=== PATIENT | male | born 1950 | race Caucasian/White ===

== ENCOUNTER → 2017-03-20 | Outpatient (CLI) | payer BC ==
[2016-06-13 13:15] VITALS: BP 133/70
[~2017-03-20] MED LIST: ACET500T33 PO; ALLO300T PO; AMIO200T2 PO; ASCO100020 PO; ASPI-630 PO; ASPI325T11 PO; CARV3.12 PO; CYCL10TA2 PO; EZET10TA18 PO; FENO145T PO; FURO-69 PO; IBUP-1060 PO; INSU100V8 SQ; LINE600T PO; LIRA0.6P2 SQ; LORA1TAB47 PO; METF500T4 PO; OXYC-323 PO; POTASSIUM CHLO10 MEQ PO; RAMI5CAP33 PO; SERT100T8 PO; SIMV40TA3 PO; VALS160T3 PO
[2017-03-20 11:21] LABS: CALCIUM 9.2 mg/dL (8.5-10.1); CHOLESTEROL/HDL RATIO 4.7; DIRECT BILIRUBIN 0.1 mg/dL (0.0-0.2); GFR 33.7; MAGNESIUM 1.9 mg/dL (1.8-2.4); POTASSIUM 5.2 mmol/L (3.5-5.1); TOTAL BILIRUBIN 0.4 mg/dL (0.2-1.0); TOTAL PROTEIN 7.6 g/dL (6.4-8.2)
--- NOTE | 2017-03-20 12:22 | CARD ---
APPROVED REPORT EXAM: Two-dimensional and M-mode echocardiogram with Doppler and color Doppler. Other Information Quality : GoodTechnically Limited Technically limited study due to body habitus INDICATION Hyperlipidemia, Chronic Systolic Heart Failure Surgery/Intervention ICD/Pacemaker: RISK FACTORS Hypertension Obesity 2D DIMENSIONS RVDd3.3 (2.9-3.5cm)Left Atrium(2D)4.4 (1.6-4.0cm) IVSd1.0 (0.7-1.1cm)Aortic Root(2D)3.1 (2.0-3.7cm) LVDd6.1 (3.9-5.9cm)LVOT Diameter2.4 (1.8-2.4cm) PWd1.0 (0.7-1.1cm)LVDs5.6 (2.5-4.0cm) FS (%) 8.9 %SV36.4 ml LVEF(%)19.2 (>50%) Aortic Valve AoV Peak Sid.117.9cm/sAoV VTI22.7cm AO Peak GR.5.6mmHgLVOT Peak Sid.110.7cm/s LVOT VTI 22.28cmAO Mean GR.3mmHg LIONEL (VMAX)4.18bf6BPX (VTI)4.34cm2 Mitral Valve MV E Rlibraxp83.5cm/sMV DECEL NCSP334hi MV A Wzytbdxi47.1cm/sMV RVL39yg E/A Ratio1.7MVA (PHT)3.76cm2 TDI E/Medial E'22.5 Tricuspid Valve TR P. Tcjkmvcw348gx/sRAP WEHHBNJT2ntRk TR Peak Gr.70naZkNIXX47vyQv LEFT VENTRICLE The Left Ventricle is mildly dilated. There is normal left ventricular wall thickness. Left ventricle systolic function is severely impaired. The Ejection Fraction is 20%. There is severe global hypokin esis of the left ventricle. Transmitral Doppler flow pattern is Grade II-pseudonormal filling dynamic s. RIGHT VENTRICLE The right ventricle is normal size. The right ventricular systolic function is normal. There is a pac emaker lead in the right ventricle. ATRIA The left atrium is mildly dilated. The right atrium size is normal. A pacemaker/ICD lead is seen in t he right atrium consistent with history. The interatrial septum is intact with no evidence for an atr ial septal defect or patent foramen ovale as noted on 2-D or Doppler imaging. AORTIC VALVE The aortic valve is normal in structure and function. Doppler and Color Flow revealed trace aortic re gurgitation. There is no significant aortic valvular stenosis. There is no aortic valvular vegetation . MITRAL VALVE The mitral valve is calcified but opens well. There is no evidence of mitral valve prolapse. There is no mitral valve stenosis. Doppler and Color-flow revealed mild mitral regurgitation. TRICUSPID VALVE The tricuspid valve is normal in structure and function. Doppler and Color Flow revealed mild to mode rate tricuspid regurgitation. There is moderate pulmonary hypertension. The PA pressure was estimated at 48 mmHg. There is no tricuspid valve stenosis. PULMONIC VALVE The pulmonary valve is normal in structure and function. Doppler and Color Flow revealed mild pulmoni c valvular regurgitation. There is no pulmonic valvular stenosis. GREAT VESSELS The aortic root is normal in size. The ascending aorta is not well seen. The IVC was not visualized. PERICARDIAL EFFUSION There is no evidence of significant pericardial effusion. Critical Notification Critical Value: No <Conclusion> Technically difficult study. Left ventricle systolic function is severely impaired. The Ejection Fraction is 20%. The left atrium is mildly dilated. A pacemaker/ICD lead is seen in the right atrium and right ventricle consistent with history. Mild mitral regurgitation. Mild to moderate tricuspid regurgitation. There is moderate pulmonary hypertension. The PA pressure was estimated at 48 mmHg. There is no evidence of significant pericardial effusion.
== END | disposition home or self-care (01) ==
LOC: ECHO 10:09
PROVIDERS: ATTEND Internal Medicine Cardiovascular Disease
DX: I11.0 Hypertensive heart disease with heart failure (principal); I08.1 Rheumatic disorders of both mitral and tricuspid valves; I50.22 Chronic systolic (congestive) heart failure; E78.5 Hyperlipidemia, unspecified; I27.2 Other secondary pulmonary hypertension; Z95.0 Presence of cardiac pacemaker
CPT/HCPCS: 36415; 80048; 80061; 80076; 83735; 93306

== ENCOUNTER → 2017-05-21 | Outpatient (CLI) | payer BC ==
[2016-06-13 13:15] VITALS: BP 133/70
--- NOTE | 2017-05-21 14:03 | RAD ---
EXAM: Renal scintigraphy. HISTORY: Diabetes, hypertension, chronic renal disease. COMPARISON: 07/09/2016. FINDINGS: 5.2 mCi technetium-99m MAG3 were administered intravenously. Scintigraphic images of the kidneys were obtained in angiographic, uptake and excretory phases. 20 mg Lasix were administered intravenously and additional excretory images were obtained. Split function and excretory curves were calculated. Angiographic images demonstrate prompt, symmetric renal perfusion. Uptake images demonstrate symmetric renal function. Contrast is seen within both ureters and bladder. Split function: 46.2% right; 53.8% left. Clearance half time: 18.9 mins; 18.0 mins. These are likely overestimates. IMPRESSION: 1. Split function: 46.2% right; 53.8% left. 2. No evidence of obstruction.
== END | disposition home or self-care (01) ==
LOC: NM 15:43
PROVIDERS: ATTEND Internal Medicine Nephrology
DX: N20.0 Calculus of kidney (principal); I12.9 Hypertensive chronic kidney disease with stage 1 through stage 4 chronic kidney disease, or unspecified chronic kidney disease; E11.22 Type 2 diabetes mellitus with diabetic chronic kidney disease; N18.9 Chronic kidney disease, unspecified
CPT/HCPCS: 78707; 96374; A9562

== ENCOUNTER → 2018-01-22 | Outpatient (CLI) | payer MEDICARE | END | disposition home or self-care (01) | LOC: KCIC 14:46 | DX: I47.2 Ventricular tachycardia (principal); I13.0 Hypertensive heart and chronic kidney disease with heart failure and stage 1 through stage 4 chronic kidney disease, or unspecified chronic kidney disease; E11.22 Type 2 diabetes mellitus with diabetic chronic kidney disease; I50.22 Chronic systolic (congestive) heart failure; N18.9 Chronic kidney disease, unspecified; E78.5 Hyperlipidemia, unspecified; E78.00 Pure hypercholesterolemia, unspecified | CPT/HCPCS: 71046 ==

== ENCOUNTER → 2018-02-15 | Outpatient (CLI) | payer MEDICARE, BC ==
[~2018-02-15] MED LIST changes: -ACET500T33 PO; -ALLO300T PO; -AMIO200T2 PO; -ASCO100020 PO; -ASPI-630 PO; -ASPI325T11 PO; -CARV3.12 PO; -CYCL10TA2 PO; -EZET10TA18 PO; -FENO145T PO; -FURO-69 PO; -IBUP-1060 PO; -INSU100V8 SQ; -LINE600T PO; -LIRA0.6P2 SQ; -LORA1TAB47 PO; -METF500T4 PO; -OXYC-323 PO; +PERFLUTREN PROTEIN-A MICROSPHR 0.22 MG/ML 3 ML VIAL. IV; -POTASSIUM CHLO10 MEQ PO; -RAMI5CAP33 PO; -SERT100T8 PO; -SIMV40TA3 PO; -VALS160T3 PO
[2018-02-15] MEDS: PERFLUTREN PROTEIN-A MICROSPHR 0.22 MG/ML 3 ML VIAL. IV (12:18)
== END | disposition home or self-care (01) ==
LOC: ECHO 10:56
DX: I36.1 Nonrheumatic tricuspid (valve) insufficiency (principal); I13.0 Hypertensive heart and chronic kidney disease with heart failure and stage 1 through stage 4 chronic kidney disease, or unspecified chronic kidney disease; E11.22 Type 2 diabetes mellitus with diabetic chronic kidney disease; I50.22 Chronic systolic (congestive) heart failure; N18.9 Chronic kidney disease, unspecified; E78.5 Hyperlipidemia, unspecified; E78.00 Pure hypercholesterolemia, unspecified; Z95.0 Presence of cardiac pacemaker; Z95.1 Presence of aortocoronary bypass graft; Z86.2 Personal history of diseases of the blood and blood-forming organs and certain disorders involving the immune mechanism
CPT/HCPCS: C8929; Q9956

== ENCOUNTER → 2019-03-18 | Outpatient (CLI) | payer MEDICARE ==
[2016-06-13 13:15] VITALS: BP 133/70
[~2019-03-18] MED LIST changes: +ACET500T33 PO; +ALLO300T PO; +AMIO200T4 PO; +ASCO100020 PO; +ASPI-630 PO; +ASPI325T11 PO; +CARV3.12 PO; +CYCL10TA2 PO; +EZET10TA20 PO; +FENO145T PO; +FURO-69 PO; +IBUP-1060 PO; +INSU100V8 SQ; +LINE600T37 PO; +LIRA0.6P2 SQ; +LORA1TAB47 PO; +METF500T16 PO; +OXYC1TAB15 PO; -PERFLUTREN PROTEIN-A MICROSPHR 0.22 MG/ML 3 ML VIAL. IV; +POTA10TA12 PO; +RAMI5CAP33 PO; +SERT100T8 PO; +SIMV40TA3 PO; +VALS160T3 PO
--- NOTE | 2019-03-18 12:24 | CARD ---
MR#: [id number] Date of Study: 03/18/2019 Ordering Physician: DEANN BEE, Referring Physician: DEANN BEE, Tech: Tena Ace APPROVED REPORT EXAM: Two-dimensional and M-mode echocardiogram with Doppler and color Doppler. Other Information Quality : AverageHR: 55bpm Rhythm : PacemakerTechnically limited study due to body habitus. INDICATION Congestive Heart Failure Surgery/Intervention ICD/Pacemaker: Date: 2014 CABG: Date: 2014 RISK FACTORS Hyperlipidemia Diabetes 2D DIMENSIONS RVDd3.7 (2.9-3.5cm)Left Atrium(2D)4.2 (1.6-4.0cm) IVSd1.3 (0.7-1.1cm)LVDd6.7 (3.9-5.9cm) LVOT Diameter2.3 (1.8-2.4cm)PWd1.4 (0.7-1.1cm) LVDs4.9 (2.5-4.0cm)FS (%) 27.4 % SV121.7 mlLVEF(%)52.0 (>50%) Aortic Valve AoV Peak Sid.140.3cm/sAoV VTI28.3cm AO Peak GR.7.9mmHgLVOT Peak Sid.135.5cm/s LVOT VTI 30.13cmAO Mean GR.4mmHg LIONEL (VMAX)2.46bu1IIK (VTI)4.25cm2 Mitral Valve MV E Wkpcaoxn11.5cm/sMV DECEL FSLJ914pr MV A Amsngufg56.1cm/sMV BFY20op E/A Ratio1.4MVA (PHT)2.98cm2 TDI E/Lateral E'10.6E/Medial E'15.9 Pulmonary Valve PV Peak Fppkdhon622.6cm/sPV Peak Grad.5mmHg Tricuspid Valve TR P. Sfmjgjmr387yk/sRAP DPGVFXNO9emHe TR Peak Gr.17kyBbSBZV35rvEb Pulmonary Vein S1 Amksifzn76.8cm/sD2 Xagxveks15.7cm/s PVa kubniqrt470espq LEFT VENTRICLE The Left Ventricle is moderately dilated. There is moderate concentric left ventricular hypertrophy. The systolic function is severely impaired. The Ejection Fraction is 30-35%. There is global hypokine sis of the left ventricle. Tissue Doppler imaging reveals moderate left ventricular diastolic dysfunc tion. RIGHT VENTRICLE The right ventricle is mildly dilated. There is normal right ventricular wall thickness. The right ve ntricular systolic function is normal. There is a pacemaker lead in the right ventricle. ATRIA The left atrium is moderately dilated. The right atrium is mildly dilated. There is a pacemaker lead seen in the right atrium. The interatrial septum is intact with no evidence for an atrial septal defe ct or patent foramen ovale as noted on 2-D or Doppler imaging. AORTIC VALVE The aortic valve is calcified but opens well. Doppler and Color Flow revealed trace aortic regurgitat ion. There is no significant aortic valvular stenosis. MITRAL VALVE The mitral valve is thickened but opens well. Mitral annular calcification is mild. There is no evide nce of mitral valve prolapse. There is no mitral valve stenosis. Doppler and Color-flow revealed trac e mitral regurgitation. TRICUSPID VALVE The tricuspid valve is normal in structure and function. Doppler and Color Flow revealed trace tricus pid regurgitation. There is no tricuspid valve stenosis. PULMONIC VALVE The pulmonic valve is not well visualized. Doppler and Color Flow revealed trace pulmonic valvular re gurgitation. There is no pulmonic valvular stenosis. GREAT VESSELS The aortic root is normal in size. The IVC is normal in size and collapses >50% with inspiration. PERICARDIAL EFFUSION There is no evidence of significant pericardial effusion. Critical Notification Critical Value: No <Conclusion> The systolic function is severely impaired. The Ejection Fraction is 30-35%. There is global hypokinesis of the left ventricle. Tissue Doppler imaging reveals moderate left ventricular diastolic dysfunction. There is a pacemaker lead in the right ventricle. Signed by : Dion Marrero, Electronically Approved : 03/18/2019 12:23:54
== END | disposition home or self-care (01) ==
LOC: ECHO 11:00
PROVIDERS: ATTEND Internal Medicine Cardiovascular Disease
DX: I70.0 Atherosclerosis of aorta (principal); I51.7 Cardiomegaly; I50.22 Chronic systolic (congestive) heart failure
CPT/HCPCS: 93306

== ENCOUNTER → 2019-04-05 | Outpatient (CLI) | payer MEDICARE ==
[2016-06-13 13:15] VITALS: BP 133/70
[~2019-04-05] MED LIST changes: +LINE600T12 PO; -LINE600T37 PO; +SIMV40TA18 PO; -SIMV40TA3 PO
--- NOTE | 2019-04-08 13:53 | RAD ---
MR#: [id number] Date of Study: 04/05/2019 Ordering Physician: DEANN BEE, Referring Physician: DEANN BEE, Tech: STACY Bates, RDMS, RTR APPROVED REPORT Patient Location : OUT-PATIENT Indications Lower Extremity Pain : Lower Extremity Edema : Skin Changes Risk Factors Obesity Past History GSV Harvesting for CABG : Greater Saphenous Veins (GSV) Significant venous relux noted in the RIGHT GSV at the following levels : Superficial Femoral Junctio n Findings There is mild diffuse edema in the left lower extremity The left great saphenous vein was previously used for bypass harvesting The right great saphenous vein measures approximately 8.6 mm. There is reflux noted at the level of t he saphenofemoral junction only at approximately 1.3 seconds. Bilateral lesser saphenous veins do not show any evidence of reflux. Critical Notification Critical Value: No <Conclusion> 1. The left great saphenous vein has been previously harvested 2. Very minimal reflux at the level of the saphenofemoral junction in the right great saphenous vein 3. Negative for reflux in the bilateral lesser saphenous veins Signed by : Dion Marrero, Electronically Approved : 04/06/2019 12:10:32
== END | disposition home or self-care (01) ==
LOC: US 12:13
PROVIDERS: ATTEND Internal Medicine Cardiovascular Disease
DX: I50.22 Chronic systolic (congestive) heart failure (principal); R60.0 Localized edema; M79.605 Pain in left leg; M79.604 Pain in right leg; E66.9 Obesity, unspecified; Z95.1 Presence of aortocoronary bypass graft
CPT/HCPCS: 93970

== ENCOUNTER → 2019-05-02 | Outpatient (CLI) | payer MEDICARE ==
[2016-06-13 13:15] VITALS: BP 133/70
[~2019-05-02] MED LIST changes: -SIMV40TA18 PO; +SIMV40TA3 PO
--- NOTE | 2019-05-02 15:42 | KCIC ---
EXAM: ABDOMEN ONE VIEW. HISTORY: Renal calculus. COMPARISON: 03/10/2016. FINDINGS: A frontal view of the abdomen is obtained. Bowel contents partially obscure the renal shadows. There are no clear renal or ureteral calculi by radiographs. There are no distended small bowel loops. There is gas distally. There are moderate degenerative changes of the lumbar spine. IMPRESSION: 1. No clear renal or ureteral calculi by radiographs. Electronically signed by: Charu Javier MD (05/02/2019 3:39 PM) [facility]
== END | disposition home or self-care (01) ==
LOC: KCIC 14:50
PROVIDERS: ATTEND Urology
DX: N20.0 Calculus of kidney (principal); M47.816 Spondylosis without myelopathy or radiculopathy, lumbar region
CPT/HCPCS: 74018

== ENCOUNTER 2020-07-11 14:58 | Emergency (ER) | payer MEDICARE ==
[~2020-07-11] VITALS: Ht 177.8 cm; Wt 116.0 kg
[~2020-07-11 14:58] MED LIST changes: -AMIO200T4 PO; +AMIO200T6 PO; +SIMV40TA18 PO; -SIMV40TA3 PO
[2020-07-11 15:47] LABS: BILIRUBIN,URINE MODERATE (NEG); CLARITY,URINE CLEAR; COLOR,URINE ORANGE; NITRITE,URINE NEGATIVE (NEG); PROTEIN,URINE NEGATIVE (NEG-TRACE)
[2020-07-11 15:50] LABS: BARBITURATES NEG (NEG); BENZODIAZEPINES NEG (NEG); CANNABINOIDS NEG (NEG); COCAINE NEG (NEG); METHADONE NEG (NEG); OPIATES POS (NEG); PHENCYCLIDINE NEG (NEG)
[2020-07-11 15:57] LABS: AMPHETAMINE/METHAMPHETAMINE NEG (NEG)
--- NOTE | 2020-07-11 16:03 | PHYS DOC ---
Past Medical History Past Medical History: Diabetes-Type II, High Cholesterol, Hypertension, Kidney Stone, Other Additional Past Medical Histor: Gout Past Surgical History: Coronary Bypass Surgery Smoking Status: Former Smoker Alcohol Use: Occasionally Drug Use: None General Adult EDM: Chief Complaint: ABDOMINAL PAIN HPI: HPI: Patient is a 70 year old male with history of diabetes type 2, hypertension, high cholesterol, who presents to the ED today complaining of mild intermittent bilateral upper abdominal pain since Thursday. Patient denies any nausea, vomiting. Denies anything specifically exacerbating or relieving his symptoms. Describes the pain as sharp. He states he was seen at the flake cutter operator office this morning and was instructed to come to the ED because they feared he could h ave CHF exacerbation. Review of Systems: Review of Systems: Constitutional: Denies fever or chills. [] Eyes: Denies change in visual acuity. [] HENT: Denies nasal congestion or sore throat. [] Respiratory: Denies cough or shortness of breath. [] Cardiovascular: Denies chest pain or edema. [] GI: Reports bilateral upper abdominal pain, denies nausea, vomiting, bloody stools or diarrhea. [] : Denies dysuria. [] Musculoskeletal: Denies back pain or joint pain. [] Integument: Denies rash. [] Neurologic: Denies headache, focal weakness or sensory changes. [] Psychiatric: Denies depression or anxiety. [] Heart Score: Risk Factors: Risk Factors: DM, Current or recent (<one month) smoker, HTN, HLP, family history of CAD, obesity. Risk Scores: Score 0 - 3: 2.5% MACE over next 6 weeks - Discharge Home Score 4 - 6: 20.3% MACE over next 6 weeks - Admit for Clinical Observation Score 7 - 10: 72.7% MACE over next 6 weeks - Early Invasive Strategies Current Medications: Current Medications Medications (Trade) Dose Ordered Sig/Linda Start Time Stop Time Status Last Admin Dose Admin Famotidine (Pepcid Vial) 20 mg 1X ONCE 07/11/20 15:45 07/11/20 15:46 DC Morphine Sulfate (Morphine Sulfate) 5 mg 1X ONCE 07/11/20 15:45 07/11/20 15:46 DC Ondansetron HCl (Zofran) 4 mg 1X ONCE 07/11/20 15:45 07/11/20 15:46 DC Allergies: Allergies: Allergies Coded Allergies Type Severity Reaction Last Updated Verified I S O L A T I O N *CONTACT* Allergy Unknown 10/16/14 Yes Penicillins Adverse Reaction Intermediate back ache, muscles 08/28/14 Yes Physical Exam: PE: Constitutional: Well developed, well nourished, no acute distress, non-toxic appearance. [] HENT: Normocephalic, atraumatic, bilateral external ears normal, oropharynx mois t, no oral exudates, nose normal. [] Eyes: PERRLA, EOMI, conjunctiva normal, no discharge. [] Neck: Normal range of motion, no tenderness, supple, no stridor. [] Cardiovascular:Heart rate regular rhythm, no murmur [] Lungs & Thorax: Slight crackles in posterior lung bases Abdomen: Bowel sounds normal, soft, no tenderness, no masses, no pulsatile masses. [] Skin: Warm, dry, no erythema, no rash. [] Back: No tenderness, no CVA tenderness. [] Extremities: No tenderness, no cyanosis, no clubbing, ROM intact, no edema. [] Neurologic: Alert and oriented X 3, normal motor function, normal sensory function, no focal deficits noted. [] Psychologic: Affect normal, judgement normal, mood normal. [] Current Patient Data: Labs: Laboratory Tests Test 07/11/20 15:15 Urine Opiates Screen Pos (NEG) Urine Methadone Screen Neg (NEG) Urine Barbiturates Neg (NEG) Urine Phencyclidine Screen Neg (NEG) Urine Amphetamine/Methamphetamine Neg (NEG) Urine Benzodiazepines Screen Neg (NEG) Urine Cocaine Screen Neg (NEG) Urine Cannabinoids Screen Neg (NEG) Urine Ethyl Alcohol Neg (NEG) EKG: EKG: [] Radiology/Procedures: Radiology/Procedures: []PROCEDURE: ACUTE ABDOMEN SERIES Exam: Abdominal series INDICATION: Abdominal pain, short of air TECHNIQUE: Frontal view of chest with upright and supine views of the abdomen Comparisons: 05/02/2019, chest x-ray 03/07/2015 FINDINGS: Sternotomy wires are noted. Pacer with leads terminating the right atrium and ventricle. The cardiomediastinal silhouette and pulmonary vessels are within normal limits. There is a 1.9 cm nodule at the left upper lobe, which appears to be stable when compared to study in 2015. No pleural effusion. There are dilated loops of likely colon diffusely throughout the abdomen. No suspicious masses or calcifications. Visualized osseous structures are unremarkable. IMPRESSION: 1. Dilated bowel in the abdomen favored represent dilated colon. Correlation with CT is recommended. 2. Possible 1.9 cm nodule left upper lobe which appears to be stable when compared study in 2015. Nonemergent follow-up chest CT is recommended to better assess if not already performed. Electronically signed by: Estuardo Nunez MD (07/11/2020 4:14 PM) [facility] DICTATED and SIGNED BY: ESTUARDO NUNEZ MD DATE: 07/11/20 [id number] PROCEDURE: CT ABDOMEN PELVIS WO CONTRAST Exam: CT of abdomen and pelvis without contrast INDICATION: Abdominal pain TECHNIQUE: Sequential axial images through the abdomen and pelvis obtained without IV contrast. Sagittal and coronal reformatted images were reconstructed from the axial data and reviewed. Comparisons: None FINDINGS: Heart size is normal. No pericardial effusion. Strandy opacities at dependent portion lungs likely representing atelectasis. No pleural effusion. Evaluation of solid organs is limited secondary to noncontrast technique. Liver, spleen, pancreas, gallbladder and adrenals are unremarkable. No perinephric inflammation or hydronephrosis. No renal or ureteral calculi are identified. Bladder is decompressed not well evaluated. Prostate is not enlarged. Large and small bowel are unremarkable. Appendix is normal. No free intra-abdom inal air. There is a small amount of free intra-abdominal fluid. No obstruction. Abdominal aorta has a normal course and caliber. No enlarged abdominal lymph nodes are identified. No suspicious osseous lesions or acute fractures. IMPRESSION: 1. Large amount of stool noted in the colon. Correlate for constipation. 2. Small amount of free fluid noted within the abdomen, which is nonspecific. Exposure: One or more of the following in the visualized dose reduction techniques were utilized for this examination: 1. Automated exposure control 2. Adjustment of the MA and/or KV according to patient size 3. Use of iterative of reconstructive technique Electronically signed by: Estuardo Nunez MD (07/11/2020 5:55 PM) [facility] DICTATED and SIGNED BY: ESTUARDO NUNEZ MD DATE: 07/11/20 [id number] 0 Course & Med Decision Making: Course & Med Decision Making Pertinent Labs and Imaging studies reviewed. (See chart for details) This is a 70-year-old male patient presenting to the ED today complaining of bilateral upper abdominal pain since Thursday. CBC with a normal WBC, normal hemoglobin and hematocrit, CMP with creatinine of 1.8, BUN of 55, AST 181, ALT 143. BNP 5547. Patient states a prescription for furosemide was called to his local pharmacist by the flake cutter operator who he saw today. Urine analysis noted for infection, discharged on Bactrim. CT of the abdomen and pelvic was noted for constipation. Discussed with patient and management of constipation. Abdominal ultrasound was noted for distended gallbladder. Spoke to the general surgeon about this. Stated patient can follow-up in his clinic Patient was discharged home. Follow-up with his own flake cutter operator for the CHF which he is aware about Cas Disclaimer: Cas Disclaimer: This electronic medical record was generated, in whole or in part, using a voice recognition dictation system. Departure Departure Impression: Primary Impression: Congestive heart failure Qualified Codes: I50.9 - Heart failure, unspecified Additional Impressions: Urinary tract infection Qualified Codes: N39.0 - Urinary tract infection, site not specified Constipation Qualified Codes: K59.00 - Constipation, unspecified Transaminitis Disposition: DC HOME SELF CARE/HOMELESS Condition: STABLE Referrals: EMILIANA RASCON MD (PCP) follow up next week MARIO COLÓN MD follow up for gall bladder distention. DEANN BEE MD follow up next week Patient Instructions: Constipation, Adult, Heart Failure, [id number], Urinary Tract Infection Additional Instructions: You were evaluated in the emergency room, you were noted to be constipated. Increase your dietary fiber intake. Try to exercise. Please consider weight loss. Please take MiraLAX every day to prevent constipation take the prescribed antibiotics for UTI. Follow-up with the provided general surgeon for gallbladder concerns. Also follow-up with your flake cutter operator for congestive heart failure Scripts Sulfamethoxazole/Trimethoprim (BACTRIM DS TABLET) 1 Each Tablet 1 TAB PO BID for 7 Days, #14 TAB 0 Refills Prov: BOBBY JIMÉNEZ APRN 07/11/20 BOBBY JIMÉNEZ APRN Jul 11, 2020 16:02
[2020-07-11 16:15] LABS: HYALINE CASTS, URINE MODERATE /HPF
[2020-07-11 16:17] LABS: BACTERIA,URINE MODERATE /HPF (0-FEW); RBC,URINE 0 /HPF (0-2)
--- NOTE | 2020-07-11 16:17 | RAD ---
Exam: Abdominal series INDICATION: Abdominal pain, short of air TECHNIQUE: Frontal view of chest with upright and supine views of the abdomen Comparisons: 05/02/2019, chest x-ray 03/07/2015 FINDINGS: Sternotomy wires are noted. Pacer with leads terminating the right atrium and ventricle. The cardiomediastinal silhouette and pulmonary vessels are within normal limits. There is a 1.9 cm nodule at the left upper lobe, which appears to be stable when compared to study in 2015. No pleural effusion. There are dilated loops of likely colon diffusely throughout the abdomen. No suspicious masses or calcifications. Visualized osseous structures are unremarkable. IMPRESSION: 1. Dilated bowel in the abdomen favored represent dilated colon. Correlation with CT is recommended. 2. Possible 1.9 cm nodule left upper lobe which appears to be stable when compared study in 2014. No nemergent follow-up chest CT is recommended to better assess if not already performed. Electronically signed by: Estuardo Hussein MD (07/11/2020 4:14 PM) [facility]
[2020-07-11 16:19] LABS: BASO % 0 % (0-3); EOS % 0 % (0-3); HEMATOCRIT 41.1 % (39.0-53.0); HEMOGLOBIN 13.2 g/dL (13.0-17.5); LYMPH # 0.7 x10^3/uL (1.0-4.8); LYMPH % 13 % (24-48); MEAN CORPUSCULAR HEMOGLOBIN 30 pg (25-35); MEAN CORPUSCULAR HGB CONC 32 g/dL (31-37); MEAN CORPUSCULAR VOLUME 94 fL (79-100); MONO # 0.3 x10^3/uL (0.0-1.1); MONO % 6 % (0-9); NEUT # 4.3 x10^3/uL (1.8-7.7); NEUT % 80 % (31-73); PLATELET COUNT 162 x10^3/uL (140-400); RED BLOOD COUNT 4.39 x10^6/uL (4.30-5.70); RED CELL DISTRIBUTION WIDTH 16.6 % (11.5-14.5); WHITE BLOOD COUNT 5.4 x10^3/uL (4.0-11.0)
[2020-07-11] MEDS: FAMOTIDINE 20 MG/2 ML VIAL IVP ONE (16:22)
[2020-07-11] MEDS: MORPHINE SULFATE 10 MG/ML VIAL. IV ONE ×2 (16:22→18:51)
[2020-07-11] MEDS: ONDANSETRON PF 4 MG/2 ML VIAL. IVP ONE (16:22)
[2020-07-11 16:38] LABS: CALCIUM 8.6 mg/dL (8.5-10.1); CREATININE 1.8 mg/dL (0.7-1.3); GFR 37.7; POTASSIUM 4.4 mmol/L (3.5-5.1)
[2020-07-11 16:51] LABS: ALBUMIN 3.3 g/dL (3.4-5.0); TOTAL BILIRUBIN 1.4 mg/dL (0.2-1.0); TOTAL PROTEIN 6.5 g/dL (6.4-8.2)
--- NOTE | 2020-07-11 17:58 | RAD ---
Exam: CT of abdomen and pelvis without contrast INDICATION: Abdominal pain TECHNIQUE: Sequential axial images through the abdomen and pelvis obtained without IV contrast. Sagit tonya and coronal reformatted images were reconstructed from the axial data and reviewed. Comparisons: None FINDINGS: Heart size is normal. No pericardial effusion. Strandy opacities at dependent portion lungs likely re presenting atelectasis. No pleural effusion. Evaluation of solid organs is limited secondary to noncontrast technique. Liver, spleen, pancreas, gallbladder and adrenals are unremarkable. No perinephric inflammation or hydronephrosis. No renal or ureteral calculi are identified. Bladder is decompressed not well evaluated. Prostate is not enlarged. Large and small bowel are unremarkable. Appendix is normal. No free intra-abdominal air. There is a s mall amount of free intra-abdominal fluid. No obstruction. Abdominal aorta has a normal course and caliber. No enlarged abdominal lymph nodes are identified. No suspicious osseous lesions or acute fractures. IMPRESSION: 1. Large amount of stool noted in the colon. Correlate for constipation. 2. Small amount of free fluid noted within the abdomen, which is nonspecific. Exposure: One or more of the following in the visualized dose reduction techniques were utilized for this examination: 1. Automated exposure control 2. Adjustment of the MA and/or KV according to patient size 3. Use of iterative of reconstructive technique Electronically signed by: Estuardo Hussein MD (07/11/2020 5:55 PM) [facility]
[2020-07-11] MEDS ORDERED: FUROSEMIDE 40 MG/4 ML VIAL. IVP ONE (19:00)
[2020-07-11] MEDS: MAGNESIUM CITRATE 296 ML SOLUTION. PO ONE (20:52)
--- NOTE | 2020-07-11 20:53 | RAD ---
Examination: Ultrasound abdomen limited HISTORY: History of abdominal pain COMPARISON: CT from same day exam FINDINGS: Examination limited due to patient body habitus and due to bowel gas. The pancreas, aorta, IVC are no t well-visualized due to bowel gas. The liver length measures 21 cm. The gallbladder is moderately di stended. The gallbladder wall thickness measures 2.2 mm. The common bile duct is not visualized due t o bowel gas. The right kidney measures 9.8 x 5.1 x 6.1 cm. Small amount of free fluid identified in t he right upper quadrant of the abdomen. IMPRESSION: 1. Hepatomegaly. 2. Mild perihepatic fluid. 3. Moderately distended gallbladder. Electronically signed by: Roc Lee MD (07/11/2020 8:51 PM) [id number]
[2020-07-11 21:17] VITALS: BP 114/58
[2020-07-11] MEDS ORDERED: SULF1TAB24 PO (21:50)
[2020-07-11] MEDS: FUROSEMIDE 40 MG TABLET. PO ONE (22:19)
== END 2020-07-11 22:26 | disposition home or self-care (01) ==
LOC: ER 14:58
DX: I11.0 Hypertensive heart disease with heart failure (principal); I50.9 Heart failure, unspecified; N39.0 Urinary tract infection, site not specified; K59.00 Constipation, unspecified; R74.01 Elevation of levels of liver transaminase levels; E78.00 Pure hypercholesterolemia, unspecified; M10.9 Gout, unspecified; Z87.891 Personal history of nicotine dependence; Z95.1 Presence of aortocoronary bypass graft; Z87.442 Personal history of urinary calculi; Z91.041 Radiographic dye allergy status; Z88.0 Allergy status to penicillin
CPT/HCPCS: 36415; 74022; 74176; 76705; 80053; 80307; 81001; 83735; 83880; 84443; 84484; 85025; 87086; 93005; 96374; 96375; 96376; 99285; J2270; J2405; J3490